=== PATIENT | male | born 1995 | race Caucasian/White ===

== ENCOUNTER 2018-09-05 15:59 | Emergency (ER) | payer MEDICAID ==
[~2018-09-05] VITALS: Ht 182.9 cm; Wt 75.3 kg
[2018-09-05 16:03] VITALS: Ht 182.9 cm; Wt 75.3 kg
[2018-09-05 17:31] VITALS: BP 130/65
== END 2018-09-05 17:31 | disposition home or self-care (01) ==
LOC: ED 15:59
DX: S61.012A Laceration without foreign body of left thumb without damage to nail, initial encounter (principal); X58.XXXA Exposure to other specified factors, initial encounter; Y93.89 Activity, other specified; Y92.89 Other specified places as the place of occurrence of the external cause; Y99.8 Other external cause status
CPT/HCPCS: 90715; J2001; Q0092